=== PATIENT | male | born 2000 | race Caucasian/White ===

== ENCOUNTER 2020-04-06 21:31 | Emergency (ER) | payer MEDICAID ==
[~2020-04-06] VITALS: Ht 175.3 cm; Wt 59.0 kg
[~2020-04-06 21:31] MED LIST: A-B OTIC EAR DR15 ML OT; AMOXICILLI400 MG/5 M PO; CHILD IBUP100 MG/5 M; LORTABELXR PO; NOHOMEMEDICATIONS; SINGULAIR5 MG PO; ZYRTEC10 M2 PO
[2020-04-06] MEDS ORDERED: SUPER THERAVIT1 EACH PO (21:50)
[2020-04-06] MEDS ORDERED: KEFLEX500 M1 PO (22:50)
[2020-04-06 23:00] VITALS: BP 128/76
== END 2020-04-06 23:00 | disposition home or self-care (01) ==
LOC: M.ERS 21:31
DX: S70.352A Superficial foreign body, left thigh, initial encounter (principal); X58.XXXA Exposure to other specified factors, initial encounter; Y93.89 Activity, other specified; Y92.89 Other specified places as the place of occurrence of the external cause; Y99.8 Other external cause status